=== PATIENT | female | born 1995 | race Caucasian/White ===

== ENCOUNTER 2023-10-18 13:22 | Outpatient (AMB) | payer OTHER, SELFPAY ==
--- NOTE | 2023-10-18 13:53 | MHC.OFFWIV ---
Intake Vital Signs 10/18/23 14:11 Weight 123 lb BP 112/60 Blood Pressure Location Rt brachial Position Sitting Pulse 66 Pulse Source Pulse Oximeter Temp 98.0 F Temp Source Temporal Artery Scan Pulse Oximetry (%) 99 Oxygen Delivery Method Room Air Intake Visit Reasons: EP, cough, congestion ([phone]) Intake Note: PT is here today for cough congestion statred 1 month ago Allergies cephalexin [From Keflex] Allergy (Mild, Verified 10/18/23 13:54) Rash Do you need a note to return to daycare/school/sports/work: Yes HPI HPI Comments History of Present Illness Details This is a 28-year-old female who presents to the office today for sick visit. Patient complaining of chest congestion, wheezing, and productive cough with clear white sputum x 1 week. Patient states her symptoms started with a sinus infection approximately 1 month ago. She states that seemed to improve/ resolve. She then started to develop a persistent cough, which started off as a dry cough but then she started to develop clear sputum production and chest congestion. Patient also felt as though she was wheezing. Review of Systems Const All systems reviewed & are unremarkable except as noted in HPI and below Reports no additional complaints Eyes Reports no additional complaints ENT Reports no additional complaints Card Reports no additional complaints Resp Reports no additional complaints GI Reports no additional complaints Reports no additional complaints Musc Reports no additional complaints Skin/Breast Reports system reviewed and no additional complaints, except as documented Neuro Reports no additional complaints Psych Reports no additional complaints Endo Reports no additional complaints Jovon/Lymph Reports no additional complaints Aller/Immun Reports no additional complaints Physical Exam Vital Signs: Last Vital Signs Temp 98.0 F 10/18/23 14:11 Pulse 66 10/18/23 14:11 BP 112/60 10/18/23 14:11 Pulse Ox 99 10/18/23 14:11 Oxygen Delivery Method Room Air 10/18/23 14:11 Const Other: Vital signs reviewed. Constitutional: Non-toxic appearing. No acute distress. Well-developed and well-nourished. HEENT: Normocephalic and atraumatic. Skin: Warm and dry. No rashes or lesions noted. Neck: Full and painless range of motion. No cervical lymphadenopathy. Cardio: Regular rate and rhythm. No murmurs, gallops, or rubs. No lower extremity edema. No JVD. Pulmonary: No respiratory distress. No accessory muscle usage. End expiratory wheezing throughout. Gastrointestinal: Soft, nontender, and nondistended in all 4 quadrants. Musculoskeletal: Normal range of motion in joints throughout the body. No deformity or other signs of injury. Neuro: Alert and oriented x4. Cranial nerves 2-12 grossly intact. No focal deficits appreciated. Psych: Normal mood and affect. Assessment & Plan Assessment & Plan (1) Acute bronchitis: Code(s): J20.9 - Acute bronchitis, unspecified Plan: This is a 28-year-old female who presented to the office complaining of a persistent cough with clear white sputum and chest congestion. On physical examination, patient has end expiratory wheezing. History and physical most consistent with an acute post viral bronchitis. Patient's vital signs are stable, her physical exam is otherwise benign, and she is overall nontoxic appearing. Patient is safe to be discharged home. She was given a prescription for p.o. prednisone 40 mg daily x5 days, p.o. azithromycin 500 mg today followed by 250 mg daily x4 days, and PO benzonatate 200 mg 3 times daily as needed for cough. Patient was advised to follow-up here or proceed to the emergency room if she were to develop persistent or worsening symptoms. Patient verbalizes her understanding and she is in agreement with the plan Medications: New benzonatate 200 mg PO TID PRN 20 caps 0RF cough prednisone 40 mg (2 x 20 mg) PO DAILY 10 tabs 0RF azithromycin For 250 mg dose pack: take 500 mg today (day 1), then 250 mg for 4 days (days 2-5) PO 6 tabs 0RF Coding Level of Care Code Est Pt Level 3 (35022) Diagnoses Acute bronchitis J20.9
[2023-10-18 14:11] VITALS: BP 112/60; PULSE 66; TEMP 36.7; O2SAT 99
== END 2023-10-18 14:54 | disposition home or self-care (01) ==
PROVIDERS: PCP Nurse Practitioner; Visit Provider Physician Assistant Medical
DX: J20.9 Acute bronchitis, unspecified (principal)
CPT/HCPCS: 99213

== ENCOUNTER 2025-02-16 13:11 | Outpatient (AMB) | payer OTHER, SELFPAY ==
[2025-02-16 13:18] VITALS: BP 104/62; PULSE 99; RESP 18; TEMP 37.2; O2SAT 98; BMI 24.0
--- NOTE | 2025-02-16 13:18 | MHC.PC.OV ---
Vital Signs 02/16/25 13:18 Height 5 ft 2 in Weight 131 lb 3.2 oz BMI 24.0 BP 104/62 Blood Pressure Location Lt brachial Position Sitting Respiration 18 Pulse 99 Pulse Source Pulse Oximeter Temp 99.0 F Temp Source Oral Pulse Oximetry (%) 98 Oxygen Delivery Method Room Air Intake Visit Reasons: Establish Care Intake Note: Patient is a new patient here to establish care. Transferring care from [facility]. Medical records have not been requested and have not been received. Impact Retail Service Merchandiser Required: No Accompanied by: Self / Same As Patient Allergies cephalexin [From Keflex] Allergy (Mild, Verified 02/16/25 13:36) Rash Medication List - Last Reconciled 02/16/25 by LEANN Wilkinson albuterol sulfate 90 mcg/actuation (Ventolin HFA) inhalation dextroamphetamine-amphetamine 15 mg 1 tab PO BID ketoconazole 2% topical sumatriptan succinate 50 mg PO tretinoin 0.05% 1 appl topical BEDTIME tretinoin 0.025% 1 appl topical BEDTIME Tobacco use date assessed: 02/16/25 Dental Screening Dental Screen Date: 02/16/25 Did you have a dental visit in the last 12 months?: Yes Did you have a dental problem in the last 6 months where you did not have access to dental care?: No Was dental information given to patient?: Patient has dentist HPI Establish Care HPI Details Previous PCP: Last visit: 2020 Last PE: same Specialist: psychiatrist- online- also prescribed sumatriptan for her headache, dermatology of acne OBGYN: need a referral-was at [facility], but provider retired Past medical history: acne, adhd, asthma at a child-only acts up when she gets a cold Medications: Family HX: Problem: 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 reports that her energy has decreased significantly reports that lately she feels like she is tired all day until she gets to bed reports that she wakes up feeling tired most days Reports that she had to wear a back brace when she was a kid. Reports that she has not have her spine check since removing the brace reports that her migraines starts in upper back/shoulder to posterior head then temporal and she is wondering if this could related to tension from her scoliosis mild scoliosis, Scheuermann's kyphosis-back brace-without this she would have needed surgery PFSH Medical History (Updated 02/16/25 @ 21:52 by LEANN Wilkinson) Migraine Acne Asthma History of scoliosis Scheuermann kyphosis Surgical History (Updated 02/16/25 @ 13:27 by Celia Wall CMA) H/O wisdom tooth extraction Family History (Updated 02/16/25 @ 13:29 by Celia Wall CMA) Father Dementia Glaucoma Macular degeneration Mother Tachycardia Social History Household Members Other:: Fiance and Friend Housing: House Alcohol intake: current Alcohol intake frequency: holidays/special occasions only Patient Tobacco Use Status: Never used Tobacco e-Cigarette/Vaping Use: Never Used Second Hand Smoke Exposure: No service: No Current occupational status: employed 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 1. Little interest or pleasure in doing things: not at all 2. Feeling down, depressed, or hopeless: not at all 3. Trouble falling or staying asleep, or sleeping too much: several days 4. Feeling tired or having little energy: more than half the days 5. Poor appetite or overeating: not at all 6. Feeling bad about yourself - or that you are a failure or have let yourself or your family down: not at all 7. Trouble concentrating on things, such as reading the newspaper or watching television: not at all 8. Moving or speaking so slowly that other people could have noticed. Or the opposite - being so fidgety or restless that you have been moving around a lot more than usual: not at all 9. Thoughts that you would be better off or of hurting yourself in some way: not at all Total score: 3 Depression Screening Interpretation: Negative Depression Screening Done: Yes 40880 - PHQ-9 Billing: Yes Source: Developed by Drs. Rolly Garrido, Yarely Salazar, Johnny Amezquita and colleagues, with an educational roxann from [employer]. Thrive Questionnaire Date Thrive assessed: 02/16/25 I am a: Patient What is your living situation today?: I have a steady place to live Within the past 12 months, did the food you bought not last and you didn't have the money to get more?: Never true Within the past 12 months, did you worry whether your food would run out before you got money to buy more?: Never true Do you have trouble paying for medicines?: No Do you have trouble getting transportation to medical appointments?: No Do you have trouble paying your heating and electricity bill?: No Do you have trouble taking care of your child, family member or friend?: No Do you have trouble with day-to-day activities such as bathing, preparing meals, shopping, managing finances, etc.?: No Are you currently unemployed and looking for a job?: No Are you interested in more education?: No Please select the resources that you would like help with: None Currently or been in a relationship where the following occur: No concerns reported THRIVE Score: 0 AUDIT C Alcohol Use Questionnaire (AUDIT-C) 1. How often do you have a drink containing alcohol?: Monthly or less 2. How many drinks containing alcohol do you have on a typical day when you are drinking?: 1 or 2 3. How often do you have six or more drinks on one occasion?: Never Total Score: 1 MONTSE-7 AMB Questionnaire MONTSE-7 Date MONTSE - 7 assessed: 02/16/25 Feeling nervous, anxious, or on edge: 0 = Not at all Not being able to stop or control worryin = Not at all Worrying too much about different things: 0 = Not at all Trouble relaxin = Not at all Being so restless that it is hard to sit still: 0 = Not at all Becoming easily annoyed or irritable: 0 = Not at all Feeling afraid as if something awful might happen: 0 = Not at all Total MONTSE-7 score (0-4 normal; 5-9 mild; 10-14 moderate; 15-21 severe): 0 Source: Developed by Yarely Bender Kurt Kroenke and colleagues, with an educational roxann from [employer]. MONTSE-7 Assessment Billing MONTSE-7 Assessment Tool: MONTSE-7 Assessment 75200 Physical exam (Primary Care) Vital Signs: Last Vital Signs Temp 99.0 F 02/16/25 13:18 Pulse 99 02/16/25 13:18 Resp 18 02/16/25 13:18 BP 104/62 02/16/25 13:18 Pulse Ox 98 02/16/25 13:18 Oxygen Delivery Method Room Air 02/16/25 13:18 BMI result Body Mass Index 24.0 Tobacco/Smoking Status: Tobacco use Status Tobacco use date assessed 02/16/25 02/16/25 13:35 Patient Tobacco Use Status Never used Tobacco 02/16/25 13:35 e-Cigarette/Vaping Use Never Used 02/16/25 13:35 PHQ-9: PHQ-9 Score PHQ-9: Total score 3 02/16/25 13:48 Depression Screening Interpretation: Negative Thrive Assessment: Date of Thrive Assessment Date Thrive assessed 02/16/25 02/16/25 13:35 Currently or been in a relationship where the following occur: No concerns reported Coding Level of Care Code New Pt Level 4 (28638) Diagnoses Mild intermittent asthma without complication J45.20 Asthma severity: mild Asthma persistence: intermittent Asthma complication type: uncomplicated Acne, unspecified acne type L70.9 Acne type: unspecified acne Attention deficit hyperactivity disorder (ADHD), unspecified ADHD type F90.9 Attention deficit-hyperactivity disorder type: unspecified Migraine with status migrainosus, not intractable, unspecified migraine type G43.901 Migraine type: unspecified Status migrainosus presence: with status migrainosus Intractability: not intractable Scheuermann kyphosis M42.00 History of scoliosis Z87.39 Additional Codes MONTSE-7 Assessment Billing - MONTSE-7 Assessment Tool: MONTSE-7 Assessment 83677 ([id number]) PHQ-9 - 11611 - PHQ-9 Billing: Yes ([id number]) Time Spent (min) 39 Assessment & Plan Assessment & Plan (1) Asthma: Code(s): J45.909 - Unspecified asthma, uncomplicated Category: Medical Qualifiers: Asthma severity: mild Asthma persistence: intermittent Asthma complication type: uncomplicated Qualified Code(s): J45.20 - Mild intermittent asthma, uncomplicated Plan: Patient reports that she only has symptoms when she has a cold. Reports that this was worse when she was a child but knows well-controlled. Continue albuterol rescue inhaler as needed (2) Acne: Code(s): L70.9 - Acne, unspecified Category: Medical Qualifiers: Acne type: unspecified acne Qualified Code(s): L70.9 - Acne, unspecified Plan: Continue tretinoin 0.05% topical at bedtime. Follow up with Dermatology as scheduled (3) ADHD: Code(s): F90.9 - Attention-deficit hyperactivity disorder, unspecified type Category: Medical Qualifiers: Attention deficit-hyperactivity disorder type: unspecified Qualified Code(s): F90.9 - Attention-deficit hyperactivity disorder, unspecified type Plan: Patient has an online provider. Continue dextroamphetamine-amphetamine 15 mg 1 tab p.o. b.i.d. (4) Migraine: Code(s): G43.909 - Migraine, unspecified, not intractable, without status migrainosus Category: Medical Qualifiers: Migraine type: unspecified Status migrainosus presence: with status migrainosus Intractability: not intractable Qualified Code(s): G43.901 - Migraine, unspecified, not intractable, with status migrainosus Plan: Patient reports that she gets aura and that she used to be on control until she found out that it was not a good idea. She was prescribed sumatriptan 50 mg by [facility]. Start taking Magnesium 400mg at bedtime and Vitamin B2 400mg daily Avoid triggers. 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 The patient would like her spine be evaluated to see if there is any residual of spine curvature. Will order x-ray of he entire spine to evaluate (6) History of scoliosis: Code(s): Z87.39 - Personal history of other diseases of the musculoskeletal system and connective tissue Category: Medical Plan: Same as above Plan Patient to follow up in 6 weeks for physical exam Orders: Orders Lipid Panel Today Z00.00 - Encounter for general adult medical examination without abnormal findings Vitamin D 25-OH Total Today Z00.00 - Encounter for general adult medical examination without abnormal findings Glucose Fasting Today Z00.00 - Encounter for general adult medical examination without abnormal findings Lyme IgG/IgM w/reflex to WB Today R53.83 - Other fatigue XR lumbar spine 2-3V Today M54.9 - Dorsalgia, unspecified, Z87.39 - Personal history of other diseases of the musculoskeletal system and connective tissue XR thoracic spine 3V Today 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 Panel Fast Today Z00.00 - Encounter for general adult medical examination without abnormal findings Complete Blood Count Auto Diff Today Z00.00 - Encounter for general adult medical examination without abnormal findings UA CC w/rflx Micro + Cult Today Z00.00 - Encounter for general adult medical examination without abnormal findings TSH reflex Free T4 Today Z00.00 - Encounter for general adult medical examination without abnormal findings IRON PROFILE Today D64.9 - Anemia, unspecified, M62.89 - Other specified disorders of muscle, Z00.00 - Encounter for general adult medical examination without abnormal findings Magnesium Today D64.9 - Anemia, unspecified, M62.89 - Other specified disorders of muscle, Z00.00 - Encounter for general adult medical examination without abnormal findings Vitamin B12 and Folate Today D64.9 - Anemia, unspecified, M62.89 - Other specified disorders of muscle, Z00.00 - Encounter for general adult medical examination without abnormal findings
--- OUTSIDE RECORDS SUMMARY | 2025-02-16 15:30 | XMS_ITS | Clinical Summary ---
Author Organization [address] Address [address] [place] [address] Phone Care Team Providers Care Cylinder Inspector And Tester Name Role Phone Lenny Kendall MD Primary Care Provider Allergies Active Allergy Reactions Criticality Noted Date Comments Cephalexin 10/03/2021 Immunizations Name Administration Dates Next Due Influenza Quadravalent, MDCK , 0.5ml, preservative free (Flucelvax) 6mo and older 10/03/2021 Tdap Tetanus diptheria acell ular pertussis (Boostrix; Adacel) 7yo and older 10/03/2021 Family History Medical History Relation Name Comments Other: kidney cancer Father Relation Name Status Comments Father Alive Mother Alive Social History Tobacco Use Types Packs/Day Years Used Date Smoking Tobacco: Never Smokeless Tobacco: Never Alcohol Use Standard Drinks/Week Comments Not Asked 0 (1 standard drink = 0.6 oz pur e alcohol) Comments Unknown Sex and Gender Information Value Date Recorded Sex Assigned at Not on file Legal Sex Female 12:48 AM EST Gender Identity Not on file Sexual Orientation Not on file Obstetrics History Plan of Treatment Upcoming Encounters Date Type Department Care Team (Late st Contact Info) Description 07/12/2025 11:30 AM EDT Office Visit Adult Medicine [address] [phone] Lenny Kendall MD [address] [place] [address] Health Maintenance Due Date Last Done Comments Hepatitis B Vaccines (1 of 3 - 19+ 3-dose series) 2012 Cervical Cancer Screening: P ap Smear 2014 Depression Screening 10/21/2022 HIV Screening 10/21/2022 Hepatitis C Screening 10/21/2022 Social Influencers of Health Screening 10/21/2022 COVID-19 Vaccine (1 - 2023-2 5 season) 2024 Influenza Vaccine (#1) 2024 10/03/2021 Cholesterol Screening (Lipid Panel) 10/03/2026 10/03/2021 DTaP,Tdap,and Td Vaccines (2 - Td or Tdap) 10/03/2031 10/03/2021 HIB Vaccines Aged Out No longer eligi ble based on patient's age to complete this topic HPV Vaccines Aged Out No longer eligi ble based on patient's age to complete this topic Hepatitis A Vaccines Aged Out No long er eligible based on patient's age to complete this topic IPV Vaccines Aged Out No longer eligi ble based on patient's age to complete this topic MMR Vaccines Aged Out No longer eligi ble based on patient's age to complete this topic Meningococcal ACWY Vaccine Aged Out N o longer eligible based on patient's age to complete this topic Meningococcal B Vacine Aged Out No lo nger eligible based on patient's age to complete this topic Pneumococcal Vaccine: Pediat rics (0 to 5 Years) and At-Risk Patients (6 to 64 Years) Aged Out No longer eligi ble based on patient's age to complete this topic RSV Immunization Patients Un soledad 20 months Aged Out No longer eligible b ased on patient's age to complete this topic Varicella Vaccines Aged Out No longer eligible based on patient's age to complete this topic Procedures Procedure Name Priority Date/Time Associated Diagnosis Comments LIPID PANEL Routine 10/03/2021 from Last 3 Months or Most Recently Relevant to Health Maintenance Results * Lipid panel (10/03/2021) LDL/HDL Ratio 2 0 - 4 Triglycerides 60 0 - 150 mg/dL Cholesterol 172 0 - 200 mg/dL HDL 86 >=40 mg/dL LDL Cholesterol 74 0 - 100 mg/dL Blood Venous blood specimen / Unknown us Historical Provider LAB BLOOD ORDERABLES Adalgisa heather Result from Last 3 Months or Most Recently Relevant to Health Maintenance Insurance [facility] Care Teams Cylinder Inspector And Tester Relationship Specialty Start Date End Date Lenny Kendall MD [address] [place] [address] PCP - General Internal Medicine 12/22/24
--- OUTSIDE RECORDS SUMMARY | 2025-02-16 15:30 | XMS_ITS | Clinical Summary ---
Author Organization [facility] Address [address] [place] [id number] Phone Care Team Providers Care Letter Sorting Machine Operator Name Role Phone Raiza Zamarripa Primary Care Provider Unavaila ble Allergies Active Allergy Reactions Criticality Noted Date Comments Cephalexin 10/17/2018 Medications fluticasone (FLONASE) 50 MCG/ACT nasal sprayIndication s:Acute recurrent ethmoidal sinusitis Administer 1 spray into each nostril daily. 1 Units 5 8 Active NUVARING 0.12-0.015 MG/24HR vaginal ring INSERT 1 RING VAGINALLY AND LEAVE IN FOR 3 WEEKS.REMOVE FOR 1 WEEK 6 9 Active Active Problems Problem Noted Date Diagnosed Date Acute recurrent ethmoidal sinusitis 10/17/2018 Family History Medical History Relation Name Comments No Known Problems Father Jesus No Known Problems Mother Senia Sanchez Relation Name Status Comments Father Jesus Mother Senia Sanchez Social History Tobacco Use Types Packs/Day Years Used Date Smoking Tobacco: Never Assessed Comments Unknown Sex and Gender Information Value Date Recorded Sex Assigned at Not on file Legal Sex Female 3:27 PM EDT Gender Identity Not on file Sexual Orientation Not on file Last Filed Vital Signs Vital Sign Reading Time Taken Comments Blood Pressure 90/70 08/10/2019 1:11 PM EDT Pulse - - Temperature 36.8 ??C (98.2 ??F) 08/10/2019 1:11 PM ED T Respiratory Rate - - Oxygen Saturation - - Inhaled Oxygen Concentration - - Weight 60.5 kg (133 lb 4.8 oz) 08/10/2019 1:11 P M EDT Height 156.8 cm (5' 1.75 ) 08/10/2019 1:11 PM ED T Body Mass Index 24.58 08/10/2019 1:11 PM EDT Plan of Treatment Health Maintenance Due Date Last Done Comments MMR Vaccines (1 of 1 - Stand jason series) 1994 Varicella Vaccines (1 of 2 - 13+ 2-dose series) 2006 DTaP,Tdap,and Td Vaccines (1 - Tdap) 2011 Hepatitis B Vaccines (1 of 3 - 19+ 3-dose series) 2012 Influenza Vaccines (#1) 2024 COVID-19 Vaccine (1 - 2023-2 5 season) 2024 HIB Vaccines Aged Out No longer eligi [...] on patient's age to complete this topic Men B Vaccine Aged Out No longer elig ible based on patient's age to complete this topic Meningococcal Vaccine Aged Out No fortunato dash eligible based on patient's age to complete this topic Pneumococcal Vaccine Aged Out No long er eligible based on patient's age to complete this topic Care Teams Letter Sorting Machine Operator Relationship Specialty Start Date End Date Raiza Zamarripa DO PCP - General Pediatrics 05/26/18
--- OUTSIDE RECORDS SUMMARY | 2025-02-16 15:30 | XMS_ITS | Clinical Summary ---
Author Organization [facility] Address [address] [place] [address] Care Team Providers Care Electrical Project Manager Name Role Phone Unavailable Primary Care Provider Unavailabl e Social History Tobacco Use Types Packs/Day Years Used Date Smoking Tobacco: Never Assessed Sex and Gender Information Value Date Recorded Sex Assigned at Not on file Gender Identity Not on file Sexual Orientation Not on file Plan of Treatment Not on file
== END 2025-02-16 14:06 | disposition home or self-care (01) ==
LOC: HO.HMCH 13:12
PROVIDERS: PCP Nurse Practitioner
DX: J45.20 Mild intermittent asthma, uncomplicated (principal); L70.9 Acne, unspecified; F90.9 Attention-deficit hyperactivity disorder, unspecified type; G43.901 Migraine, unspecified, not intractable, with status migrainosus; M42.00 Juvenile osteochondrosis of spine, site unspecified; Z87.39 Personal history of other diseases of the musculoskeletal system and connective tissue

== ENCOUNTER → 2025-02-16 13:11 | Outpatient (BNVA) | payer OTHER, SELFPAY | PROVIDERS: PCP Nurse Practitioner | DX: Z00.8 Encounter for other general examination (principal); J45.20 Mild intermittent asthma, uncomplicated; L70.9 Acne, unspecified; F90.9 Attention-deficit hyperactivity disorder, unspecified type; G43.901 Migraine, unspecified, not intractable, with status migrainosus; M42.00 Juvenile osteochondrosis of spine, site unspecified; Z87.39 Personal history of other diseases of the musculoskeletal system and connective tissue | CPT/HCPCS: 96127; 99202 ==

== ENCOUNTER 2025-02-17 11:09 | Outpatient (REF) | payer OTHER, SELFPAY ==
--- NOTE | ~2025-02-17 | XR_ITS ---
EXAMINATION: XR CERVICAL SPINE CLINICAL INFORMATION: Z87.39 - Personal history of other diseases of the musculoskeletal syste... COMPARISON: None available. TECHNIQUE: 3 views of the cervical spine were obtained. FINDINGS: Normal lordosis. No scoliosis. No subluxations. No fracture, compression deformity, or suspicious bone lesion. C1-2 articulation and craniocervical junction are intact and aligned. Normal facet alignment. Disc spaces appear normal. The pre and paravertebral soft tissues are normal. The lung apices are clear. XR/XR cervical spine 3V IMPRESSION: Normal cervical spine. Electronically signed by: Palmer Jackson MD 02/18/2025 09:09 AM EDT
--- NOTE | ~2025-02-17 | XR_ITS ---
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 TECHNIQUE: 3 views of the thoracic spine were obtained. FINDINGS: There is a very mild right convex scoliosis of the superior one half of the thoracic spine, apex at T6. There is a normal kyphosis. There is no subluxation. No compression deformity, fracture, or suspicious bone lesion. Disc spaces appear preserved at all levels. Normal facet alignment without facet arthrosis. Imaged lungs, mediastinal contents, and soft tissues appear normal. XR/XR thoracic spine 3V IMPRESSION: 1. Very mild right convex thoracic scoliosis, apex at T6. Otherwise normal exam. Electronically signed by: Palmer Jackson MD 02/18/2025 09:10 AM EDT
[2025-02-17 13:14] LABS: MANUAL DIFF FLAG NO
[2025-02-17 13:27] LABS: Basophils Percent Auto 0.7 % (0-2); Eosinophils Absolute Auto 0.2 X10*3/uL (0.0-0.4); Eosinophils Percent Auto 2.7 % (0-4); Hematocrit 38.9 % (37.0-47.0); Hemoglobin 13.2 g/dl (12.0-16.0); Imm Gran Abs Auto 0.02 X10*3/uL (0.00-0.03); Imm Gran Pct Auto 0.3 % (0.0-0.4); Lymphocytes Absolute Auto 1.5 X10*3/uL (1.2-4.9); Lymphocytes Percent Auto 25.3 % (20-40); Mean Corpuscular HGB Conc 33.9 g/dl (31.0-35.0); Mean Corpuscular Hemoglobin 29.9 pg (27.0-33.0); Mean Corpuscular Volume 88.2 fL (80.0-98.0); Mean Platelet Volume 9.8 fL (9.4-12.3); Monocytes Absolute Auto 0.5 X10*3/uL (0.1-1.2); Monocytes Percent Auto 8.9 % (2-11); Neutrophils Absolute Auto 3.7 x10*3/uL (2.0-8.3); Neutrophils Percent Auto 62.1 % (45-73); Platelet Count 287 X10*3/uL (160-400); Red Blood Count 4.41 X10*6/uL (4.20-5.50); Red Cell Distribution Width 12.5 % (11.0-16.0)
--- OUTSIDE RECORDS SUMMARY | 2025-02-17 13:33 | XMS_ITS | Clinical Summary ---
Author Organization [facility] Address [address] [place] [address] Care Team Providers Care Metal Model Builder Name Role Phone Unavailable Primary Care Provider Unavailabl e Social History Tobacco Use Types Packs/Day Years Used Date Smoking Tobacco: Never Assessed Sex and Gender Information Value Date Recorded Sex Assigned at Not on file Gender Identity Not on file Sexual Orientation Not on file Plan of Treatment Not on file
--- OUTSIDE RECORDS SUMMARY | 2025-02-17 13:33 | XMS_ITS | Clinical Summary ---
Author Organization [address] Address [address] [place] [address] Phone Care Team Providers Care Chief Construction Inspector Name Role Phone Lenny Kendall MD Primary [...] 11:30 AM EDT Office Visit Adult Medicine [address] [phone] Lenny Kendall MD [address] [place] [address] Health Maintenance Due Date Last Done Comments [...] Most Recently Relevant to Health Maintenance Insurance [facility] [employer] Care Teams Chief Construction Inspector Relationship Specialty Start Date End Date Lenny Kendall MD [address] [place] [address] PCP - General Internal Medicine 12/22/24
--- OUTSIDE RECORDS SUMMARY | 2025-02-17 13:33 | XMS_ITS | Clinical Summary ---
Author Organization [facility] Address [address] [place] [id number] Phone Care Team Providers Care Principal Cloud Architect Name Role Phone Raiza Zamarripa Primary Care [...] age to complete this topic Care Teams Principal Cloud Architect Relationship Specialty Start Date End Date Raiza Zamarripa DO PCP - General Pediatrics 05/26/18
[2025-02-17 14:01] LABS: Appearance Urine Clear; Color Urine Straw; Glucose Urine UA Negative (Negative); Leukocyte Esterase Urine Negative (Negative); Nitrite Urine Negative (Negative); Urine Blood Negative (Negative); Urine Ketones Negative (Negative); Urine Protein Negative (Neg-Trace)
[2025-02-17 14:12] LABS: Alanine Aminotransferase 12 U/L (0-31); Albumin Level 4.2 g/dL (3.5-5.0); Alkaline Phosphatase 50 U/L (39-117); Anion Gap 7 (12-20); Aspartate Amino Transferase 17 U/L (5-31); Bilirubin Total 0.3 mg/dL (0.0-1.0); Blood Urea Nitrogen 8 mg/dL (9-16); Calcium 8.9 mg/dL (8.4-10.2); Carbon Dioxide 26 mmol/L (22-29); Chloride 109 mmol/L (96-108); Cholesterol 144 mg/dL (<200); Estimated Glomerular Filt Rate > 60; Glucose Fasting 81 mg/dL (60-99); HDL Cholesterol 70 mg/dL (>40); Iron 49 mcg/dL (30-160); LDL Cholesterol Calculated 69 mg/dL (<100); Magnesium 1.9 mg/dL (1.6-2.6); Percent Iron Saturation 17 % (15-50); Potassium 4.4 mmol/L (3.3-5.1); Sodium 138 mmol/L (135-145); Total Iron Binding Capacity 284 mcg/dL (228-428); Total Protein 6.7 g/dL (6.5-8.0); Triglycerides 29 mg/dL (<150); Unsaturated Iron Binding 235 ug/dL
[2025-02-17 14:33] LABS: Folate 12.5 ng/mL (> or = 4.0); Vitamin B12 675 pg/mL (200-900)
[2025-02-17 14:37] LABS: TSH reflex Free T4 1.29 uIU/mL (0.32-4.0); Vitamin D 25-OH Total 49.5 ng/mL (>30)
[2025-02-18 07:49] LABS: Lyme Abs Screen <0.90 index
== END 2025-02-17 11:10 | disposition home or self-care (01) ==
LOC: HO.HMGCX 11:09
DX: Z00.00 Encounter for general adult medical examination without abnormal findings (principal); R53.83 Other fatigue; D64.9 Anemia, unspecified; M62.89 Other specified disorders of muscle; Z87.39 Personal history of other diseases of the musculoskeletal system and connective tissue; M42.00 Juvenile osteochondrosis of spine, site unspecified
CPT/HCPCS: 36415; 72040; 72072; 80053; 80061; 81003; 82306; 82607; 82746; 83540; 83735; 84443; 85025; 86617; 86618

== ENCOUNTER → 2025-02-17 11:28 | Outpatient (BNV) | payer OTHER, SELFPAY | PROVIDERS: Visit Provider Radiology Diagnostic Radiology | DX: Z87.39 Personal history of other diseases of the musculoskeletal system and connective tissue (principal); M41.34 Thoracogenic scoliosis, thoracic region | CPT/HCPCS: 72040; 72072 ==

== ENCOUNTER 2025-03-30 14:51 | Outpatient (AMB) | payer OTHER, SELFPAY ==
[2025-03-30 15:15] VITALS: BP 110/70; PULSE 121; RESP 14; TEMP 36.9; O2SAT 97; BMI 24.4
--- NOTE | 2025-03-30 15:15 | MHC.PC.OV ---
Vital Signs 03/30/25 15:15 Height 5 ft 2 in Weight 133 lb 3.2 oz BMI 24.4 BP 110/70 Blood Pressure Location Lt brachial Position Sitting Respiration 14 Pulse 121 H Pulse Source Pulse Oximeter Temp 98.5 F Temp Source Oral Pulse Oximetry (%) 97 Oxygen Delivery Method Room Air Intake Visit Reasons: annual physical Corporate Communications Associate Required: No Accompanied by: Self / Same As Patient Allergies cephalexin [From Keflex] Allergy (Mild, Verified 03/30/25 15:17) Rash Medication List - Last Reconciled 03/30/25 by LEANN Wilkinson albuterol sulfate 90 mcg/actuation (Ventolin HFA) inhalation PRN dextroamphetamine-amphetamine 15 mg 1 tab PO BID ketoconazole 2% topical PRN sumatriptan succinate 50 mg PO tretinoin 0.05% 1 appl topical BEDTIME tretinoin 0.025% 1 appl topical BEDTIME Tobacco use date assessed: 03/30/25 Dental Screening Dental Screen Date: 03/30/25 Did you have a dental visit in the last 12 months?: Yes Did you have a dental problem in the last 6 months where you did not have access to dental care?: No Was dental information given to patient?: Patient has dentist HPI annual physical HPI Details Dentist: up to date Eye: up coming appt Snellen: Right: Left: Corrected vision: glasses and contacts STI screening: Colonoscopy: Pap Smer: referral PHQ-9: Flu: missed it this year COVID: x3 Tdap:up to date Diet:regular Exercise:none The patient is a 29-year-old female presenting with a comprehensive review of laboratory results and health maintenance. She reports recent headaches and was advised to take magnesium oxide in the past. The patient enquired about her low triglyceride levels, which were confirmed to be below the standard range, likely due to dietary factors, though the patient does not strictly follow a low-fat diet. Aside from headaches, the patient has a history of mild iron deficiency, which was reported to be on the lower side of normal but not critically low. The patient has a previous history of anemia but is currently mainly concerned due to decreased iron levels. She denies episodes of chest pain, heart palpitations, and shortness of breath, specifically stating her concern is maintaining her current level of health during periods, citing past anemia concerns. The patient is scheduled for an upcoming eye examination but is overdue for a Pap smear test. She reported missed annual physicals, including vaccinations like the flu shot, although she has completed multiple COVID-19 vaccinations. Past screenings for dental and routine check-ups were current, except for those put off due to time constraints. Health Maintenance: - Up-to-date COVID-19 vaccination with two doses of initial vaccine series and at least one booster received. - Student mentioned completion of a tetanus booster within the last four years. - The patient reports missing this year's flu vaccine. - Gaps in health maintenance noted for Pap smear and recent eye examinations, with the eye exam scheduled for a future date. - Bloodwork review indicated a need to monitor iron levels on the lower end of the normal range, with a plan for re-evaluation in three months. [facility] Medical History (Updated 03/30/25 @ 15:59 by LEANN Wilkinson) Migraine Acne Asthma History of scoliosis Scheuermann kyphosis Surgical History H/O wisdom tooth extraction Family History Father Dementia Glaucoma Macular degeneration Mother Tachycardia Social History Household Members Other:: Fiance and Friend Housing: House Alcohol intake: current Alcohol intake frequency: holidays/special occasions only Patient Tobacco Use Status: Never used Tobacco e-Cigarette/Vaping Use: Never Used Second Hand Smoke Exposure: No service: No Current occupational status: employed 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 1. Little interest or pleasure in doing things: several days 2. Feeling down, depressed, or hopeless: not at all 3. Trouble falling or staying asleep, or sleeping too much: several days 4. Feeling tired or having little energy: more than half the days 5. Poor appetite or overeating: not at all 6. Feeling bad about yourself - or that you are a failure or have let yourself or your family down: not at all 7. Trouble concentrating on things, such as reading the newspaper or watching television: not at all 8. Moving or speaking so slowly that other people could have noticed. Or the opposite - being so fidgety or restless that you have been moving around a lot more than usual: not at all 9. Thoughts that you would be better off or of hurting yourself in some way: not at all Total score: 4 Depression Screening Interpretation: Positive Depression Screening Done: Yes Source: Developed by Drs. Rolly Garrido, Yarely Salazar, Johnny Amezquita and colleagues, with an educational roxann from [employer]. Thrive Questionnaire Date Thrive assessed: 03/30/25 I am a: Patient What is your living situation today?: I have a steady place to live Within the past 12 months, did the food you bought not last and you didn't have the money to get more?: Never true Within the past 12 months, did you worry whether your food would run out before you got money to buy more?: Never true Do you have trouble paying for medicines?: No Do you have trouble getting transportation to medical appointments?: No Do you have trouble paying your heating and electricity bill?: No Do you have trouble taking care of your child, family member or friend?: No Do you have trouble with day-to-day activities such as bathing, preparing meals, shopping, managing finances, etc.?: No Are you currently unemployed and looking for a job?: No Are you interested in more education?: No Please select the resources that you would like help with: None Currently or been in a relationship where the following occur: No concerns reported THRIVE Score: 0 AUDIT C Alcohol Use Questionnaire (AUDIT-C) 1. How often do you have a drink containing alcohol?: Monthly or less 2. How many drinks containing alcohol do you have on a typical day when you are drinking?: 1 or 2 3. How often do you have six or more drinks on one occasion?: Never Total Score: 1 Score Reviewed/Action Taken: No MONTSE-7 AMB Questionnaire MONTSE-7 Date MONTSE - 7 assessed: 03/30/25 Feeling nervous, anxious, or on edge: 0 = Not at all Not being able to stop or control worryin = Not at all Worrying too much about different things: 0 = Not at all Trouble relaxin = Not at all Being so restless that it is hard to sit still: 0 = Not at all Becoming easily annoyed or irritable: 0 = Not at all Feeling afraid as if something awful might happen: 0 = Not at all Total MONTSE-7 score (0-4 normal; 5-9 mild; 10-14 moderate; 15-21 severe): 0 Source: Developed by Drs. Rolly Garrido, Yarely Salazar, Johnny Amezquita and colleagues, with an educational roxann from [employer]. Review of Systems Const Denies headache(s) Eyes Denies loss of vision ENT Denies vertigo, Denies dizziness, Denies headache(s) and Denies sore throat Card Denies chest pain, Denies leg edema and Denies lightheadedness Resp Denies cough, Denies hemoptysis and Denies wheezing GI Denies abdominal pain, Denies melena, Denies constipation, Denies diarrhea and Denies vomiting Denies urinary frequency, Denies dysuria and Denies urinary urgency Musc Denies arthralgias, Denies joint swelling, Denies numbness and Denies tingling Neuro Denies Abnormal speech present, Denies behavioral changes, Denies vertigo, Denies dizziness, Denies headache(s), Denies loss of vision, Denies memory loss, Denies numbness and Denies tingling Psych Denies anxiety, Denies behavioral changes, Denies depression, Denies memory loss and Denies panic attacks Jovon/Lymph Denies easy bleeding and Denies easy bruising Aller/Immun Denies wheezing Physical exam (Primary Care) Vital Signs: Last Vital Signs Temp 98.5 F 03/30/25 15:15 Pulse 121 H 03/30/25 15:15 Resp 14 03/30/25 15:15 BP 110/70 03/30/25 15:15 Pulse Ox 97 03/30/25 15:15 Oxygen Delivery Method Room Air 03/30/25 15:15 BMI result Body Mass Index 24.4 Tobacco/Smoking Status: Tobacco use Status Tobacco use date assessed 03/30/25 03/30/25 15:22 Patient Tobacco Use Status Never used Tobacco 03/30/25 15:22 e-Cigarette/Vaping Use Never Used 03/30/25 15:22 PHQ-9: PHQ-9 Score PHQ-9: Total score 4 03/30/25 15:22 Depression Screening Interpretation: Positive Thrive Assessment: Date of Thrive Assessment Date Thrive assessed 03/30/25 03/30/25 15:22 Currently or been in a relationship where the following occur: No concerns reported Const General: healthy appearing, no acute distress, alert and awake Nutritional Appearance: well nourished Orientation/consciousness: oriented to person, oriented to place and oriented to time HENMT Ears: TM's normal bilaterally General nose exam: Normal nasal mucous membranes and turbinates present Eyes Conjunctivae: conjunctivae normal Sclerae: sclerae normal Pupils: Equal, round and reactive pupils present Neck Neck: Yes no lymphadenopathy and Yes no JVD Thyroid: Thyroid normal Carotids: no bruits Resp Effort & Inspection: normal respiratory effort and not tachypneic Auscultation: no crackles, no rales, no rhonchi and no wheezes Cardio Rate: regular rate Rhythm: regular rhythm Heart sounds: no murmurs and normal S1 and S2 GI Palpation (GI): Soft to palpation, nontender, no hepatomegaly and no splenomegaly Auscultation: normal bowel sounds Skin General skin exam: no rashes or lesions noted and dry skin Neuro General: oriented to person, oriented to place and oriented to time Cranial nerves: Yes Equal, round and reactive pupils present Speech: No Abnormal speech present Gait exam (Neuro): Normal gait present Motor exam (neuro): no tremor noted Extrem Right upper extremity: full ROM Left upper extremity: full ROM Right lower extremity: full ROM; no edema Left lower extremity: full ROM; no edema Psych Mental Status: mental status grossly normal Speech and movement: Normal speech and movement present Affect: normal affect Attitude: cooperative Thought process: Normal thought process present Results Reviewed Results Reviewed: Laboratory Tests 02/17/25 11:14 WBC 6.0 RBC 4.41 Hgb 13.2 Hct 38.9 MCV 88.2 MCH 29.9 MCHC 33.9 RDW 12.5 Plt Count 287 Sodium 138 Potassium 4.4 Chloride 109 H Carbon Dioxide 26 Anion Gap 7 L BUN 8 L Creatinine 0.60 Estimated GFR > 60 Fasting Glucose 81 Calcium 8.9 Magnesium 1.9 Iron 49 TIBC 284 % Saturation 17 Unsat Iron Binding 235 Total Bilirubin 0.3 AST 17 ALT 12 Alkaline Phosphatase 50 Total Protein 6.7 Albumin 4.2 Triglycerides 29 Cholesterol 144 LDL Cholesterol, Calc 69 HDL Cholesterol 70 Vitamin B12 675 25-OH Vitamin D Total 49.5 Folate 12.5 TSH 1.29 Urine Color Straw Urine Appearance Clear Urine pH 7.0 Ur Specific [place] 1.010 Urine Protein Negative Urine Glucose (UA) Negative Urine Ketones Negative Urine Blood Negative Urine Nitrite Negative Ur Leukocyte Esterase Negative Lyme Screen IgG & IgM <0.90 Coding Level of Care Code Est Pt Prev Care 18-39y([id number]) Diagnoses Annual physical exam Z00.00 Cervical cancer screening Z12.4 Mild intermittent asthma without complication J45.20 Asthma severity: mild Asthma persistence: intermittent Asthma complication type: uncomplicated Acne, unspecified acne type L70.9 Acne type: unspecified acne Attention deficit hyperactivity disorder (ADHD), unspecified ADHD type F90.9 Attention deficit-hyperactivity disorder type: unspecified Migraine with status migrainosus, not intractable, unspecified migraine type G43.901 Migraine type: unspecified Status migrainosus presence: with status migrainosus Intractability: not intractable Scheuermann kyphosis M42.00 History of scoliosis Z87.39 Time Spent (min) 36 Assessment & Plan Assessment & Plan (1) Annual physical exam: Code(s): Z00.00 - Encounter for general adult medical examination without abnormal findings Category: Medical Plan: preventative guidelines and recent labs and imaging reviewed with patient (2) Cervical cancer screening: Code(s): Z12.4 - Encounter for screening for malignant neoplasm of cervix Category: Medical Plan: votator machine operator referral placed (3) Asthma: Code(s): J45.909 - Unspecified asthma, uncomplicated Category: Medical Qualifiers: Asthma severity: mild Asthma persistence: intermittent Asthma complication type: uncomplicated Qualified Code(s): J45.20 - Mild intermittent asthma, uncomplicated Plan: Patient reports that she only has symptoms when she has a cold. Reports that this was worse when she was a child but knows well-controlled. Continue albuterol rescue inhaler as needed (4) Acne: Code(s): L70.9 - Acne, unspecified Category: Medical Qualifiers: Acne type: unspecified acne Qualified Code(s): L70.9 - Acne, unspecified Plan: Continue tretinoin 0.05% topical at bedtime. Follow up with Dermatology as scheduled (5) ADHD: Code(s): F90.9 - Attention-deficit hyperactivity disorder, unspecified type Category: Medical Qualifiers: Attention deficit-hyperactivity disorder type: unspecified Qualified Code(s): F90.9 - Attention-deficit hyperactivity disorder, unspecified type Plan: Patient has an online provider. Continue dextroamphetamine-amphetamine 15 mg 1 tab p.o. b.i.d. (6) Migraine: Code(s): G43.909 - Migraine, unspecified, not intractable, without status migrainosus Category: Medical Qualifiers: Migraine type: unspecified Status migrainosus presence: with status migrainosus Intractability: not intractable Qualified Code(s): G43.901 - Migraine, unspecified, not intractable, with status migrainosus Plan: Patient reports that she gets aura and that she used to be on control until she found out that it was not a good idea. She was prescribed sumatriptan [address] [facility] provider. Start taking Magnesium 400mg at bedtime and Vitamin B2 400mg daily Avoid triggers. 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 The patient would like her spine be evaluated to see if there is any residual of spine curvature. Recent x-ray shows stable findings (8) History of scoliosis: Code(s): Z87.39 - Personal history of other diseases of the musculoskeletal system and connective tissue Category: Medical Plan: Same as above Plan During this consultation, I provided an analysis of the patient?s blood work and health maintenance plan. The patient?s low triglycerides were addressed, reaffirming their cardiovascular benefits. Intervention for her mild iron deficiency involved dietary changes, delaying the use of iron supplements due to potential side effects. To manage headaches, she will resume magnesium oxide use, assessing for any triggers in her routine. The patient will re-evaluate iron levels in three months. Health maintenance discussions included scheduling overdue exams like her Pap smear and exploring lifestyle changes to increase physical activity and vaccine adherence. Patient was informed and verbally consented to the use of an ambient scribe for clinic note documentation during this visit. Orders: Orders IRON PROFILE 3 Months D64.9 - Anemia, unspecified Complete Blood Count Auto Diff 3 Months D64.9 - Anemia, unspecified Referrals FIRE CHIEF DEPUTY Referral Z01.419 - Encounter for gynecological examination (general) (routine) without abnormal findings, Z12.4 - Encounter for screening for malignant neoplasm of cervix
--- OUTSIDE RECORDS SUMMARY | 2025-03-30 15:54 | XMS_ITS | Clinical Summary ---
Author Organization [facility] Address [address] [place] [id number] Phone Care Team Providers Care Prosthodontist Name Role Phone Raiza Zamarripa Primary Care [...] age to complete this topic Care Teams Prosthodontist Relationship Specialty Start Date End Date Raiza Zamarripa DO PCP - General Pediatrics 05/26/18
--- OUTSIDE RECORDS SUMMARY | 2025-03-30 15:54 | XMS_ITS | Clinical Summary ---
Author Organization [facility] Address [address] [place] [address] Care Team Providers Care Consultant Technology Name Role Phone Unavailable Primary Care Provider Unavailabl e Social History Tobacco Use Types Packs/Day Years Used Date Smoking Tobacco: Never Assessed Sex and Gender Information Value Date Recorded Sex Assigned at Not on file Gender Identity Not on file Sexual Orientation Not on file Plan of Treatment Not on file
== END 2025-03-30 15:53 | disposition home or self-care (01) ==
LOC: HO.HMCH 14:52
PROVIDERS: PCP Nurse Practitioner
DX: Z00.00 Encounter for general adult medical examination without abnormal findings (principal); Z12.4 Encounter for screening for malignant neoplasm of cervix; J45.20 Mild intermittent asthma, uncomplicated; L70.9 Acne, unspecified; F90.9 Attention-deficit hyperactivity disorder, unspecified type; G43.901 Migraine, unspecified, not intractable, with status migrainosus; M42.00 Juvenile osteochondrosis of spine, site unspecified; Z87.39 Personal history of other diseases of the musculoskeletal system and connective tissue

== ENCOUNTER → 2025-03-30 14:51 | Outpatient (BNVA) | payer OTHER, SELFPAY | PROVIDERS: PCP Nurse Practitioner | DX: Z00.00 Encounter for general adult medical examination without abnormal findings (principal); J45.20 Mild intermittent asthma, uncomplicated; L70.9 Acne, unspecified; F90.9 Attention-deficit hyperactivity disorder, unspecified type; G43.901 Migraine, unspecified, not intractable, with status migrainosus; M42.00 Juvenile osteochondrosis of spine, site unspecified; Z87.39 Personal history of other diseases of the musculoskeletal system and connective tissue; Z79.899 Other long term (current) drug therapy | CPT/HCPCS: 99395 ==

== ENCOUNTER 2025-06-25 15:02 | Outpatient (REF) | payer OTHER, SELFPAY ==
--- OUTSIDE RECORDS SUMMARY | 2025-06-25 15:05 | XMS_ITS | Clinical Summary ---
Author Organization [address] Address [address] [place] [address] Phone Care Team Providers Care Air Drier Name Role Phone Lenny Kendall MD Primary [...] 11:30 AM EDT Office Visit Adult Medicine [address] [phone] Lenny Kendall MD [address] [place] [address] Health Maintenance Due Date Last Done Comments Hepatitis B Vaccines (1 of 3 - 19+ 3-dose series) 2012 Cervical Cancer Screening: P ap Smear 2014 HIV Screening 10/21/2022 Hepatitis C Screening 10/21/2022 Social Influencers of Health Screening 10/21/2022 COVID-19 Vaccine (1 - 2023-2 5 season) 2024 Depression Screening 11/18/2024 Influenza Vaccine (#1) 2025 10/03/2021 Cholesterol Screening (Lipid Panel) 10/03/2026 10/03/2021 [...] age to complete this topic Meningococcal B Vaccine Aged Out No l onger eligible based on patient's age to complete this topic Pneumococcal Vaccine: Pediat rics (0 to 5 Years) and At-Risk Patients (6 to 49 Years) Aged Out No longer eligi ble [...] us Historical Provider LAB BLOOD ORDERABLES Adalgisa romero Result from Last 3 Months or Most Recently Relevant to Health Maintenance Insurance [facility] Care Teams Air Drier Relationship Specialty Start Date End Date Lenny Kendall MD [address] [place] [address] PCP - General Internal Medicine 12/22/24
--- OUTSIDE RECORDS SUMMARY | 2025-06-25 15:05 | XMS_ITS | Clinical Summary ---
Author Organization [facility] Address [address] [place] [address] Care Team Providers Care Mud Grinder Name Role Phone Unavailable Primary Care Provider Unavailabl e Social History Tobacco Use Types Packs/Day Years Used Date Smoking Tobacco: Never Assessed Sex and Gender Information Value Date Recorded Sex Assigned at Not on file Gender Identity Not on file Sexual Orientation Not on file Plan of Treatment Not on file
[2025-06-25 16:06] LABS: MANUAL DIFF FLAG NO
[2025-06-25 16:20] LABS: Hematocrit 40.2 % (37.0-47.0); Hemoglobin 13.4 g/dl (12.0-16.0); Imm Gran Abs Auto 0.04 X10*3/uL (0.00-0.03); Imm Gran Pct Auto 0.4 % (0.0-0.4); Lymphocytes Absolute Auto 1.6 X10*3/uL (1.2-4.9); Mean Corpuscular HGB Conc 33.3 g/dl (31.0-35.0); Mean Corpuscular Hemoglobin 29.4 pg (27.0-33.0); Mean Corpuscular Volume 88.2 fL (80.0-98.0); NRBC Abs Auto 0.000 X10*3/uL (0.0-0.012); NRBC Pct Auto 0.0 /100WBC (0.0-0.2); Platelet Count 322 X10*3/uL (160-400); Red Blood Count 4.56 X10*6/uL (4.20-5.50); White Blood Count 11.0 X10*3/uL (4.8-10.8)
[2025-06-25 16:29] LABS: Iron 75 mcg/dL (30-160); Percent Iron Saturation 25 % (15-50); Total Iron Binding Capacity 299 mcg/dL (228-428); Unsaturated Iron Binding 224 ug/dL
== END 2025-06-25 15:03 | disposition home or self-care (01) ==
LOC: HO.HMGCLDS 15:02
DX: D64.9 Anemia, unspecified (principal)
CPT/HCPCS: 36415; 83540; 85025

== ENCOUNTER 2025-06-29 14:02 | Outpatient (AMB) | payer OTHER, SELFPAY ==
--- NOTE | 2025-06-29 14:12 | A.OFFPC_ITS ---
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 Accompanied by: Self / Same As Patient Allergies cephalexin (From Keflex) Allergy (Mild, Verified 06/29/25 14:32) Rash Medication List - Last Reconciled 06/29/25 by LEANN Wilkinson albuterol sulfate 90 mcg/actuation (Ventolin HFA) inhalation PRN dextroamphetamine-amphetamine 15 mg 1 tab PO BID ketoconazole 2% topical PRN sumatriptan succinate 50 mg PO tretinoin 0.05% 1 appl topical BEDTIME tretinoin 0.025% 1 appl topical BEDTIME Tobacco use date assessed: 03/30/25 Dental Screening Dental Screen Date: 06/29/25 Did you have a dental visit in the last 12 months?: Yes Did you have a dental problem in the last 6 months where you did not have access to dental care?: No Was dental information given to patient?: Patient has dentist HPI 3 month HPI Details The patient is a 29-year-old female presenting with migraine management and iron level discussion. The patient has a history of iron deficiency anemia, which has shown improvement in recent tests. She reports feeling better and having longer sleep durations, indicating a positive response to treatment. The patient experiences migraines approximately once a month, which are severe enough to disrupt her daily activities. She has been using magnesium supplements, which initially helped with sleep but have not significantly reduced the frequency or severity of her migraines over time. Sumatriptan is used for migraine relief, with variable effectiveness depending on the severity of the migraine. Reports that the pain starts from her shoulder and travels up the back of her head to the top. The patient is also being treated for ADHD, taking medication primarily during workdays. Her current dose has been effective for her. Recently, the patient noted leukocytosis, which was attributed to a possible transient response to a mild illness. She reports no ongoing symptoms and is cautious about unnecessary antibiotic use. Reports that recently she had cloudy urine and thought that she might been have having a UTI. She drank plenty for fluids that her urine cleared up, even though, she is not sure if this is completely resolved. neurology, ongoning migraine. reports that the magnesium [facility] Medical History Migraine Acne Asthma History of scoliosis Scheuermann kyphosis Surgical History H/O wisdom tooth extraction Family History Father Dementia Glaucoma Macular degeneration Mother Tachycardia Social History Household Members Other:: Fiance and Friend Housing: House Alcohol intake: current Alcohol intake frequency: holidays/special occasions only Patient Tobacco Use Status: Never used Tobacco e-Cigarette/Vaping Use: Never Used Second Hand Smoke Exposure: No service: No Current occupational status: employed 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 1. Little interest or pleasure in doing things: several days 2. Feeling down, depressed, or hopeless: not at all 3. Trouble falling or staying asleep, or sleeping too much: several days 4. Feeling tired or having little energy: more than half the days 5. Poor appetite or overeating: not at all 6. Feeling bad about yourself - or that you are a failure or have let yourself or your family down: not at all 7. Trouble concentrating on things, such as reading the newspaper or watching television: not at all 8. Moving or speaking so slowly that other people could have noticed. Or the opposite - being so fidgety or restless that you have been moving around a lot more than usual: not at all 9. Thoughts that you would be better off or of hurting yourself in some way: not at all Total score: 4 Depression Screening Interpretation: Positive Depression Screening Done: Yes Source: Developed by Drs. Rolly Garrido, Yarely Salazar, Johnny Amezquita and colleagues, with an educational roxann from [employer]. Thrive Questionnaire Date Thrive assessed: 06/29/25 I am a: Patient What is your living situation today?: I have a steady place to live Within the past 12 months, did the food you bought not last and you didn't have the money to get more?: Never true Within the past 12 months, did you worry whether your food would run out before you got money to buy more?: Never true Do you have trouble paying for medicines?: No Do you have trouble getting transportation to medical appointments?: No Do you have trouble paying your heating and electricity bill?: No Do you have trouble taking care of your child, family member or friend?: No Do you have trouble with day-to-day activities such as bathing, preparing meals, shopping, managing finances, etc.?: No Are you currently unemployed and looking for a job?: No Are you interested in more education?: No Please select the resources that you would like help with: None Currently or been in a relationship where the following occur: No concerns reported THRIVE Score: 0 AUDIT C Alcohol Use Questionnaire (AUDIT-C) 1. How often do you have a drink containing alcohol?: Monthly or less 2. How many drinks containing alcohol do you have on a typical day when you are drinking?: 1 or 2 3. How often do you have six or more drinks on one occasion?: Never Total Score: 1 Score Reviewed/Action Taken: No MONTSE-7 AMB Questionnaire MONTSE-7 Date MONTSE - 7 assessed: 06/29/25 Feeling nervous, anxious, or on edge: 0 = Not at all Not being able to stop or control worryin = Not at all Worrying too much about different things: 0 = Not at all Trouble relaxin = Not at all Being so restless that it is hard to sit still: 0 = Not at all Becoming easily annoyed or irritable: 0 = Not at all Feeling afraid as if something awful might happen: 0 = Not at all Total MONTSE-7 score (0-4 normal; 5-9 mild; 10-14 moderate; 15-21 severe): 0 Source: Developed by Drs. Rolly Garrido, Yarely Salazar, Johnny Amezquita and colleagues, with an educational roxann from [employer]. Review of Systems Const Reports headache(s) (severe usually for a day and half. Worse during the times of her periods) Eyes Denies loss of vision ENT Denies vertigo, Denies dizziness, Reports headache(s) (severe usually for a day and half. Worse during the times of her periods) and Denies sore throat Card Denies chest pain, Denies leg edema and Denies lightheadedness Resp Denies cough, Denies hemoptysis and Denies wheezing GI Denies abdominal pain, Denies melena, Denies constipation, Denies diarrhea and Denies vomiting Denies urinary frequency, Denies dysuria, Denies urinary urgency and Reports other (Cloudy urine prior that has cleared up) Musc Denies arthralgias, Denies joint swelling, Denies numbness and Denies tingling Neuro Denies behavioral changes, Denies vertigo, Denies dizziness, Reports headache(s) (severe usually for a day and half. Worse during the times of her periods), Denies loss of vision, Denies memory loss, Denies numbness and Denies tingling Psych Denies anxiety, Denies behavioral changes, Denies depression, Denies memory loss and Denies panic attacks Jovon/Lymph Denies easy bleeding and Denies easy bruising Aller/Immun Denies wheezing Physical exam (Primary Care) Vital Signs: Last Vital Signs Temp 97 F 06/29/25 14:22 Pulse 73 06/29/25 14:22 Resp 18 06/29/25 14:22 BP 112/70 06/29/25 14:22 Pulse Ox 93 06/29/25 14:22 Oxygen Delivery Method Room Air 06/29/25 14:22 BMI result Body Mass Index 23.2 Tobacco/Smoking Status: Tobacco use Status Tobacco use date assessed 03/30/25 06/29/25 14:12 Patient Tobacco Use Status Never used Tobacco 06/29/25 14:12 e-Cigarette/Vaping Use Never Used 06/29/25 14:12 PHQ-9: PHQ-9 Score PHQ-9: Total score 4 06/29/25 14:42 Depression Screening Interpretation: Positive Thrive Assessment: Date of Thrive Assessment Date Thrive assessed 06/29/25 06/29/25 14:29 Currently or been in a relationship where the following occur: No concerns reported Const General: cooperative, healthy appearing, comfortable and no acute distress Orientation/consciousness: patient oriented x3 HENMT Head: Yes normocephalic Ears: hearing grossly normal bilaterally General nose exam: Normal external nose present Eyes General: appearance normal, both eyes and all related structures Conjunctivae: conjunctivae normal EOM: No Nystagmus present Neck Neck: Yes full ROM and Yes no lymphadenopathy Resp Effort & Inspection: normal respiratory effort Auscultation: clear to auscultation bilaterally, no crackles, no rales, no rhonchi and no wheezes Cardio Rate: regular rate Rhythm: regular rhythm Heart sounds: S2 normal heart sound present and no murmurs Skin General skin exam: no rashes or lesions noted Neuro General: patient oriented x3 and CN's II-XI intact bilaterally Cranial nerves: No Nystagmus present Gait exam (Neuro): Normal gait present Extrem General: Yes normal to inspection, Yes full ROM and No edema Right upper extremity: full ROM Left upper extremity: full ROM Right lower extremity: full ROM; no edema Left lower extremity: full ROM; no edema Psych Affect: normal affect Attitude: cooperative Insight: Good insight present (Psych) Judgement: Good judgement present (Psych) Results Reviewed Results Reviewed: Laboratory Tests 06/25/25 15:06 WBC 11.0 H RBC 4.56 Hgb 13.4 Hct 40.2 MCV 88.2 MCH 29.4 MCHC 33.3 RDW 12.9 Plt Count 322 Iron 75 TIBC 299 % Saturation 25 Unsat Iron Binding 224 Coding Level of Care Code Est Pt Level 3 (92191) Diagnoses Attention deficit hyperactivity disorder (ADHD), unspecified ADHD type F90.9 Attention deficit-hyperactivity disorder type: unspecified Anemia, unspecified type D64.9 Anemia type: unspecified type Migraine with status migrainosus, not intractable, unspecified migraine type G43.901 Migraine type: unspecified Status migrainosus presence: with status migrainosus Intractability: not intractable Mild intermittent asthma without complication J45.20 Asthma severity: mild Asthma persistence: intermittent Asthma complication type: uncomplicated Cloudy urine R82.90 Time Spent (min) 31 Assessment & Plan Assessment & Plan (1) ADHD: Code(s): F90.9 - Attention-deficit hyperactivity disorder, unspecified type Category: Medical Qualifiers: Attention deficit-hyperactivity disorder type: unspecified Qualified Code(s): F90.9 - Attention-deficit hyperactivity disorder, unspecified type (2) Anemia: Code(s): D64.9 - Anemia, unspecified Category: Medical Qualifiers: Anemia type: unspecified type Qualified Code(s): D64.9 - Anemia, unspecified (3) Migraine: Code(s): G43.909 - Migraine, unspecified, not intractable, without status migrainosus Category: Medical Qualifiers: Migraine type: unspecified Status migrainosus presence: with status migrainosus Intractability: not intractable Qualified Code(s): G43.901 - Migraine, unspecified, not intractable, with status migrainosus (4) Asthma: Code(s): J45.909 - Unspecified asthma, uncomplicated Category: Medical Qualifiers: Asthma severity: mild Asthma persistence: intermittent Asthma complication type: uncomplicated Qualified Code(s): J45.20 - Mild intermittent asthma, uncomplicated (5) Cloudy urine: Code(s): R82.90 - Unspecified abnormal findings in urine Category: Medical Plan The patient will be referred to a neurologist to explore additional treatment options for her migraines, as current management with magnesium and sumatriptan provides inconsistent relief. Regular follow-ups will be scheduled for ADHD medication management, ensuring compliance with controlled substance regulations. The patient is advised to monitor her symptoms and avoid unnecessary antibiotic use unless symptoms of infection persist. Patient was informed and verbally consented to the use of an ambient scribe for clinic note documentation during this visit. 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, site unspecified, Z00.00 - Encounter for general adult medical examination without abnormal findings, Z01.419 - Encounter for gynecological examination (general) (routine) without abnormal findings, Z12.4 - Encounter for screening for malignant neoplasm of cervix, Z87.39 - Personal history of other diseases of the musculoskeletal system and connective tissue IRON PROFILE 6 Months D64.9 - Anemia, unspecified, F90.9 - Attention-deficit hyperactivity disorder, unspecified type, G43.901 - Migraine, unspecified, not intractable, with status migrainosus, J45.20 - Mild intermittent asthma, uncomplicated, L70.9 - Acne, unspecified, 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, site unspecified, Z00.00 - Encounter for general adult medical examination without abnormal findings, Z01.419 - Encounter for gynecological examination (general) (routine) without abnormal findings, Z12.4 - Encounter for screening for malignant neoplasm of cervix, Z87.39 - Personal history of other diseases of the musculoskeletal system and connective tissue TSH reflex Free T4 6 Months D64.9 - Anemia, unspecified, F90.9 - Attention- deficit hyperactivity disorder, unspecified type, G43.901 - Migraine, unspecified, not intractable, with status migrainosus, J45.20 - Mild intermittent asthma, uncomplicated, L70.9 - Acne, unspecified, 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, site unspecified, Z00.00 - Encounter for general adult medical examination without abnormal findings, Z01.419 - Encounter for gynecological examination (general) (routine) without abnormal findings, Z12.4 - Encounter for screening for malignant neoplasm of cervix, Z87.39 - Personal history of other diseases of the musculoskeletal system and connective tissue Vitamin D 25-OH Total 6 Months D64.9 - Anemia, unspecified, F90.9 - Attention- deficit hyperactivity disorder, unspecified type, G43.901 - Migraine, unspecified, not intractable, with status migrainosus, J45.20 - Mild intermittent asthma, uncomplicated, L70.9 - Acne, unspecified, 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, site unspecified, Z00.00 - Encounter for general adult medical examination without abnormal findings, Z01.419 - Encounter for gynecological examination (general) (routine) without abnormal findings, Z12.4 - Encounter for screening for malignant neoplasm of cervix, Z87.39 - Personal history of other diseases of the musculoskeletal system and connective tissue Lipid Panel 6 Months D64.9 - Anemia, unspecified, F90.9 - Attention-deficit hyperactivity disorder, unspecified type, G43.901 - Migraine, unspecified, not intractable, with status migrainosus, J45.20 - Mild intermittent asthma, uncomplicated, L70.9 - Acne, unspecified, 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, site unspecified, Z00.00 - Encounter for general adult medical examination without abnormal findings, Z01.419 - Encounter for gynecological examination (general) (routine) without abnormal findings, Z12.4 - Encounter for screening for malignant neoplasm of cervix, Z87.39 - Personal history of other diseases of the musculoskeletal system and connective tissue UA CC w/rflx Micro + Cult 6 Months D64.9 - Anemia, unspecified, F90.9 - Attention-deficit hyperactivity disorder, unspecified type, G43.901 - Migraine, unspecified, not intractable, with status migrainosus, J45.20 - Mild intermittent asthma, uncomplicated, L70.9 - Acne, unspecified, 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
[2025-06-29 14:22] VITALS: BP 112/70; PULSE 73; RESP 18; TEMP 36.1; O2SAT 93; BMI 23.2
--- OUTSIDE RECORDS SUMMARY | 2025-06-29 15:04 | XMS_ITS | Clinical Summary ---
Author Organization [address] Address [address] [place] [address] Phone Care Team Providers Care Wool Shearing Supervisor Name Role Phone Lenny Kendall MD Primary [...] 11:30 AM EDT Office Visit Adult Medicine [address] [phone] Lenny Kendall MD [address] [place] [address] Health Maintenance Due Date Last Done Comments [...] Most Recently Relevant to Health Maintenance Insurance [facility] Care Teams Wool Shearing Supervisor Relationship Specialty Start Date End Date Lenny Kendall MD [address] [place] [address] PCP - General Internal Medicine 12/22/24
--- OUTSIDE RECORDS SUMMARY | 2025-06-29 15:04 | XMS_ITS | Clinical Summary ---
Author Organization [facility] Address [address] [place] [address] Care Team Providers Care Field Return Repairer Name Role Phone Unavailable Primary Care Provider Unavailabl e Social History Tobacco Use Types Packs/Day Years Used Date Smoking Tobacco: Never Assessed Sex and Gender Information Value Date Recorded Sex Assigned at Not on file Gender Identity Not on file Sexual Orientation Not on file Plan of Treatment Not on file
--- OUTSIDE RECORDS SUMMARY | 2025-06-29 15:04 | XMS_ITS | Clinical Summary ---
Author Organization [facility] Address [address] [place] [id number] Phone Care Team Providers Care Breastfeeding Program Coordinator Name Role Phone Raiza Zamarripa Primary Care [...] PM EDT Pulse - - Temperature 36.8 C (98.2 F) 08/10/2019 1:11 PM EDT Respiratory Rate - - Oxygen Saturation - [...] of 3 - 19+ 3-dose series) 2012 HPV Vaccines (1 - 3-dose SCD M series) 2020 COVID-19 Vaccine (1 - 2023-2 5 season) 2024 Influenza Vaccines (#1) 2025 HIB Vaccines Aged Out No longer eligi [...] age to complete this topic Care Teams Breastfeeding Program Coordinator Relationship Specialty Start Date End Date Raiza Zamarripa DO PCP - General Pediatrics 05/26/18
== END 2025-06-29 14:46 | disposition home or self-care (01) ==
LOC: HO.HMCH 14:03
DX: F90.9 Attention-deficit hyperactivity disorder, unspecified type (principal); D64.9 Anemia, unspecified; G43.901 Migraine, unspecified, not intractable, with status migrainosus; J45.20 Mild intermittent asthma, uncomplicated; R82.90 Unspecified abnormal findings in urine

== ENCOUNTER → 2025-06-29 14:02 | Outpatient (BNVA) | payer OTHER, SELFPAY | DX: J45.20 Mild intermittent asthma, uncomplicated (principal); G43.909 Migraine, unspecified, not intractable, without status migrainosus; D50.9 Iron deficiency anemia, unspecified; F90.9 Attention-deficit hyperactivity disorder, unspecified type; G43.901 Migraine, unspecified, not intractable, with status migrainosus; R82.90 Unspecified abnormal findings in urine | CPT/HCPCS: 99212 ==

== ENCOUNTER 2025-09-20 14:32 | Outpatient (REF) | payer OTHER, SELFPAY ==
--- OUTSIDE RECORDS SUMMARY | 2025-09-20 16:56 | XMS_ITS | Clinical Summary ---
Author Organization [facility] Address [address] [place] [id number] Phone Care Team Providers Care Children'S Program Coordinator Name Role Phone Raiza Zamarripa [...] (1 - 3-dose SCD M series) 2020 Influenza Vaccines (#1) 2025 COVID-19 Vaccine (1 - 2024-2 6 season) 2025 HIB Vaccines Aged Out No longer [...] age to complete this topic Care Teams Children'S Program Coordinator Relationship Specialty Start Date End Date Raiza Zamarripa DO PCP - General Pediatrics 05/26/18
--- OUTSIDE RECORDS SUMMARY | 2025-09-20 16:56 | XMS_ITS | Clinical Summary ---
Author Organization [facility] Address [address] [place] [address] Care Team Providers Care Nursing Technician Name Role Phone Unavailable Primary Care Provider Unavailabl e Social History Tobacco Use Types Packs/Day Years Used Date Smoking Tobacco: Never Assessed Sex and Gender Information Value Date Recorded Sex Assigned at Not on file Gender Identity Not on file Sexual Orientation Not on file Plan of Treatment Not on file
[2025-09-21 00:35] LABS: Bacterial Vaginosis PCR NEGATIVE (Negative); Candida Group PCR NOT DETECTED (Not Detect); Candida glab krusei PCR NOT DETECTED (Not Detect); Trichomonas vaginalis PCR NOT DETECTED (Not Detect)
[2025-09-21 01:05] LABS: CT PCR NOT DETECTED (Not Detect.); NG PCR NOT DETECTED (Not Detect.)
== END 2025-09-20 14:33 | disposition home or self-care (01) ==
LOC: HO.LNP 14:32
PROVIDERS: Visit Provider Advanced Practice Midwife
DX: Z01.419 Encounter for gynecological examination (general) (routine) without abnormal findings (principal); Z20.2 Contact with and (suspected) exposure to infections with a predominantly sexual mode of transmission; F90.9 Attention-deficit hyperactivity disorder, unspecified type; G43.901 Migraine, unspecified, not intractable, with status migrainosus; Z78.9 Other specified health status; Z31.69 Encounter for other general counseling and advice on procreation; Z79.899 Other long term (current) drug therapy; Z11.51 Encounter for screening for human papillomavirus (HPV)
CPT/HCPCS: 81515; 87491; 87591; 87626; 88175; 99385

== ENCOUNTER 2025-09-20 14:32 | Outpatient (AMB) | payer OTHER, SELFPAY ==
--- NOTE | 2025-09-20 14:37 | MHC.OFFVIS ---
Vital Signs 09/20/25 14:47 Height 5 ft 2 in Weight 130 lb BMI 23.8 BP 110/70 Intake Visit Reasons: FLA[employer] annual exam Intake Note: Last pap smear 2019, normal hx. Patient has concerns of painful menses. Retail Management Trainee: Retail Management Trainee Present (Jane) Accompanied by: Self / Same As Patient Allergies cephalexin (From Keflex) Allergy (Mild, Verified 09/20/25 14:43) Rash Medication List - Last Reconciled 09/20/25 by Bruna Toussaint CNM albuterol sulfate 90 mcg/actuation (Ventolin HFA) inhalation PRN dextroamphetamine-amphetamine 15 mg 1 tab PO BID ketoconazole 2% topical PRN sumatriptan succinate 50 mg PO tretinoin 0.05% 1 appl topical BEDTIME tretinoin 0.025% 1 appl topical BEDTIME Is last menstrual period known: Yes Last menstrual period: 08/19/25 Post menopausal: No Patient : No HPI HPI F[employer] annual exam: Details: 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 She has been on combination control pills and the Maggie and the NuvaRing. She was getting migraines with aura with the NuvaRing and possibly with the combination pills but she had had not realize it was an aura before periods Maggie caused her severe pain and when it was due for removal she had it taken out. Now she is using condoms she is 30 years old and has been with the same partner for 10 years she is thinking that maybe they what want to have a baby in about 2-3 years. She is healthy otherwise she is only on ADHD meds and PRN meds. She had told her previous spoilage worker that she had a severe pain at the very beginning of her menses when she would be having a bowel movement that felt like it might be what feels like to get to a baby but it was hard to localize where it was but it could have been at her rectum. I did explore whether not she could have had some hard stool that was trying to come out at the beginning of her menses but there was no definitive answer to this. 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 Cognitive needs: No Hearing needs: No Vision needs: Yes (Glasses) Female Reproductive History Menstrual Age of Menarche: 10 Date of last menstrual period: 08/19/25 control method: none Total pregnancies: 0 History of abnormal pap smear: No Physical Exam Vital Signs: Last Vital Signs BP 110/70 09/20/25 14:47 BMI result Body Mass Index 23.8 Const General: healthy appearing, comfortable, no acute distress, well developed and alert Nutritional Appearance: average body habitus Orientation/consciousness: patient oriented x3 Limitations: no limitations HEENT Head: Yes normocephalic Neck Neck: Yes normal visual inspection Chest Chest palpation & inspection: normal inspection of the chest Breast/axilla inspection: normal inspection of the breasts and normal inspection of the axillae Breast/axilla palpation: normal palpation of the breasts and normal palpation of the axillae Resp Effort & Inspection: normal respiratory effort GI Inspection: Yes normal to inspection, No Abdominal wall edema and No distended Palpation (GI): Soft to palpation and nontender Other: External exam within normal limits vagina pink and moist nulliparous cervix pink smooth healthy appearing with trace trickle of start of menses evident. Uterus small midposition mobile nontender adnexa nontender nonenlarged good tone with Kegel. General: Yes bladder normal to palpation External Female Exam: normal external appearance and normal appearance of the urethra Speculum Exam - Vagina: normal appearance of the vagina, normal palpation and normal vaginal discharge Speculum Exam - Cervix: normal appearance of the cervix, normal palpation and nontender Bimanual exam- vagina & uterus: normal bimanual exam, normal palpation, uterine size normal, bladder normal to palpation, consistency normal, normal palpation, uterine mobility normal, uterine shape normal, No Cervical tenderness present, non-tender and no cervical motion tenderness Bimanual Exam- Adnexa, other: normal adnexae, no masses, normal and No adnexal tenderness Neuro General: patient oriented x3 Assessment & Plan Assessment & Plan (1) Cervical cancer screening: Code(s): Z12.4 - Encounter for screening for malignant neoplasm of cervix Category: Medical (2) Routine gynecological examination: Code(s): Z01.419 - Encounter for gynecological examination (general) (routine) without abnormal findings Category: Medical (3) ADHD: Code(s): F90.9 - Attention-deficit hyperactivity disorder, unspecified type Category: Medical Qualifiers: Attention deficit-hyperactivity disorder type: unspecified Qualified Code(s): F90.9 - Attention-deficit hyperactivity disorder, unspecified type (4) Migraine: Code(s): G43.909 - Migraine, unspecified, not intractable, without status migrainosus Category: Medical Qualifiers: Migraine type: unspecified Status migrainosus presence: with status migrainosus Intractability: not intractable Qualified Code(s): G43.901 - Migraine, unspecified, not intractable, with status migrainosus (5) Uses condoms as primary control method: Code(s): Z78.9 - Other specified health status Category: Social Hx (6) Encounter for preconception consultation: Code(s): Z31.69 - Encounter for other general counseling and advice on procreation Category: Medical Plan -----Discussed in this visit the following: healthy balanced diet, regular and consistent exercise, getting recommended health screens, doing the best she can for her particular health concerns, kegel exercises, pap smear screening and followup recommendations, mammography screening and SBE, normal changes in cycles in her life stage--- .----I reviewed available options for Control Methods and their associated side effect profiles. In particular, we discussed the method most of interest to her. I reviewed all she had used and the side effects and precautions and why she had needed to stop each method and and what had gone on with each of them. Discussed her theoretical concerns of endometriosis. Also discussed her symptoms of passage of stool at the beginning of her periods and what really maybe going on with that and the potential possibilities discussed the workup for endometriosis in the it may not be something she wishes to consider evaluating at this time and discussed ways to handle dysmenorrhea with ibuprofen and heating pads. She had a question about was there a way to figure out her about her egg reserve but she would need to investigate that with fertility services discussed decline in fertility from around age 33 on. Discussed optimizing her health before considering conception and starting vitamins with folic acid ahead of time. Recommend considering consultation with her provider's about her ADHD medicines prior to conception as well. Coding Level of Care Code New Pt Prev Care 18-39yr([id number] Diagnoses Cervical cancer screening Z12.4 Routine gynecological examination Z01.419 Attention deficit hyperactivity disorder (ADHD), unspecified ADHD type F90.9 Attention deficit-hyperactivity disorder type: unspecified Migraine with status migrainosus, not intractable, unspecified migraine type G43.901 Migraine type: unspecified Status migrainosus presence: with status migrainosus Intractability: not intractable Uses condoms as primary control method Z78.9 Encounter for preconception consultation Z31.69
[2025-09-20 14:47] VITALS: BP 110/70; BMI 23.8
== END 2025-09-20 15:49 | disposition home or self-care (01) ==
LOC: HO.HWS 14:33
PROVIDERS: Visit Provider Advanced Practice Midwife
DX: Z01.419 Encounter for gynecological examination (general) (routine) without abnormal findings (principal); F90.9 Attention-deficit hyperactivity disorder, unspecified type; G43.901 Migraine, unspecified, not intractable, with status migrainosus; Z78.9 Other specified health status; Z31.69 Encounter for other general counseling and advice on procreation
CPT/HCPCS: 99385; 99459